=== PATIENT | male | born 1940 | race Caucasian/White ===

== ENCOUNTER → 2017-06-08 | Outpatient (CLI) | payer MEDICARE, OTHER ==
[~2017-06-08] MED LIST: ASCO10004 PO; ASPI-496 PO; CALC625T68 PO; CYAN50008 PO; MULT-224 PO; OMEP-110 PO; ROSU20TA PO
[2017-06-08 10:14] LABS: HEMATOCRIT 45.5 % (39.2-51.8); HEMOGLOBIN 15.3 g/dL (13.7-18.0); WHITE BLOOD COUNT 5.4 x10^3/uL (3.4-10)
[2017-06-08 10:26] LABS: ASPARTATE AMINO TRANSFERASE 19 U/L (15-37); BLOOD UREA NITROGEN 12 mg/dL (7-18)
[2017-06-08 10:47] LABS: HIV 1&2 ANTIBODY SCREEN Nonreactive (Nonreactive); HIV-1 p24 ANTIGEN Nonreactive (Nonreactive)
== END | disposition home or self-care (01) ==
LOC: STAR 08:50
PROVIDERS: ATTEND Orthopaedic Surgery Orthopaedic Surgery of the Spine
DX: Z01.811 Encounter for preprocedural respiratory examination (principal); M48.56XA Collapsed vertebra, not elsewhere classified, lumbar region, initial encounter for fracture; M47.894 Other spondylosis, thoracic region; R00.1 Bradycardia, unspecified
CPT/HCPCS: 36415; 71020; 80053; 80074; 81003; 85025; 85610; 85651; 85730; 86703; 87899; 93005; G0435

== ENCOUNTER 2017-06-16 13:20 | Day surgery (SDC) | payer MEDICARE, OTHER ==
[~2017-06-16] VITALS: Ht 188 cm; Wt 81.0 kg
[2017-06-16] MEDS ORDERED: LACTATED RINGERS 1,000 ML IV SCH (13:40)
[2017-06-16] MEDS ORDERED: BUPIVACAINE/PF 0.5% ONE (15:54)
[2017-06-16] MEDS ORDERED: EPINEPHRINE 1 MG/ML, 1ML ONE (15:54)
[2017-06-16] MEDS ORDERED: LIDOCAINE/PF 1%, 30ML ONE (15:54)
[2017-06-16] MEDS ORDERED: ROCURONIUM 10 MG/ML ONE (16:13)
[2017-06-16] MEDS ORDERED: FENTANYL PF 100 MCG/2ML ONE (16:13)
[2017-06-16] MEDS ORDERED: LIDOCAINE 2%, 10ML ONE (16:13)
[2017-06-16] MEDS ORDERED: NEOSTIGMINE 1 MG/ML, 10ML ONE (16:13)
[2017-06-16] MEDS ORDERED: ONDANSETRON 2MG/ML, 2ML ONE (16:13)
[2017-06-16] MEDS ORDERED: CEFAZOLIN 1,000 MG ONE (16:13)
[2017-06-16] MEDS ORDERED: SUCCINYLCHOLINE 20 MG/ML, 10ML ONE (16:13)
[2017-06-16] MEDS ORDERED: PROPOFOL 10 MG/ML, 20ML ONE (16:13)
[2017-06-16] MEDS ORDERED: OMNIPAQUE 180 MG/ML, 20ML VIAL IT ONE (16:45)
[2017-06-16] MEDS ORDERED: LABETALOL 5MG/ML, 20ML IV PRN (17:00)
[2017-06-16] MEDS ORDERED: PROMETHAZINE 25 MG/ML, 1ML IV PRN (17:00)
[2017-06-16] MEDS ORDERED: FENTANYL PF 100 MCG/2ML IV PRN (17:00)
[2017-06-16] MEDS ORDERED: ACETAMINOPHEN 325 MG TABLET PO PRN (17:00)
[2017-06-16] MEDS ORDERED: hydrALAzine 20 MG/ML, 1ML IV PRN (17:00)
[2017-06-16] MEDS ORDERED: MIDAZOLAM 1 MG/ML, 2ML IV PRN (17:00)
[2017-06-16] MEDS ORDERED: HYDROmorphone 1 MG/ML, 1ML IV PRN (17:00)
[2017-06-16] MEDS ORDERED: OXYcodone 5 MG/5 ML ORAL.SOL UDC PO PRN (17:00)
[2017-06-16] MEDS ORDERED: ONDANSETRON 2MG/ML, 2ML IVPush PRN (17:00)
[2017-06-16] MEDS ORDERED: OMNIPAQUE 180 MG/ML, 20ML VIAL ONE (18:21)
[2017-06-16 19:10] VITALS: BP 152/98
== END 2017-06-16 20:00 | disposition home or self-care (01) ==
LOC: OUT 13:20 → 4NOR 18:30 → OUT 20:00
PROVIDERS: ATTEND Orthopaedic Surgery Orthopaedic Surgery of the Spine
DX: M80.88XA Other osteoporosis with current pathological fracture, vertebra(e), initial encounter for fracture (principal); I25.10 Atherosclerotic heart disease of native coronary artery without angina pectoris; K21.9 Gastro-esophageal reflux disease without esophagitis; I25.2 Old myocardial infarction; Z96.652 Presence of left artificial knee joint; Z96.642 Presence of left artificial hip joint; Z79.82 Long term (current) use of aspirin; Z72.89 Other problems related to lifestyle
CPT/HCPCS: 22514; 72100; 88307; 88311; C1713; J0171; J0330; J0690; J2405; J2704; J2710; J3010; J3490; J7120; Q9965; 88342; G0461

== ENCOUNTER 2019-09-12 10:43 | Inpatient (IN) | payer MEDICARE, OTHER ==
[~2019-09-12] VITALS: Ht 188 cm; Wt 87.6 kg
[~2019-09-12 10:43] MED LIST changes: -MULT-224 PO; +MULT-642 PO; -ROSU20TA PO; +ROSU20TA2 PO
--- NOTE | 2019-09-12 10:52 | NUR ---
PT GÓMEZ, REPORT RECEIVED FROM EMS. PT C/O RIGHT HIP PAIN FOLLOWING FALL OFF OF STEP STOOL THIS AM; OBVIOUS DEFORMITY, EXTERNAL ROTATION AND SHORTENING NOTED TO RT HIP. PT DENIES SYNCOPE, DENIES HEAD INJURY, DENIES NECK PAIN. 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 AT BEDSIDE. CALL LIGHT IN REACH. PT A&O, RESPS EVEN AND UNLABORED. AWAITING MD AND ORDERS AT THIS TIME.
[2019-09-12] MEDS ORDERED: SODIUM CHLORIDE 0.9% 1,000 ML IV ONE (11:03)
--- NOTE | 2019-09-12 11:15 | NUR ---
PT CHANGED INTO GOWN, ALL MONITORS IN PLACE, EMS BACKBOARD REMOVED. PT TOLERATED WELL. PT DECLINES PAIN MEDICATION AT THIS TIME.
--- NOTE | 2019-09-12 11:19 | NUR ---
RADIOLOGY PAGED TO COLLECT PT. EKG HEART BY EDT.
[2019-09-12] MEDS ORDERED: SODIUM CHLORIDE FLUSH 10ML SYR IVF ONE (11:30)
--- NOTE | 2019-09-12 11:32 | NUR ---
THIS RN UNABLE TO PALPATE DORSALIS PEDIS PULSE TO RIGHT FOOT, PT STATES HE HAS SENSATION IN TOES, CAP REFILL <3 SEC. FOOT IS PINK, COOL, DRY. THIS RN ABLE TO LOCATE RT DORSALIS PULSE WITH DOPPLER. KLAUDIA MANZO NOTIFIED. PT DECLINES PAIN MEDICATION AT THIS TIME. PT TO XRAY WITH TECH.
[2019-09-12 11:33] LABS: BASOPHILS # (AUTO) 0.04 x10^3/uL (0-0.1); BASOPHILS % (AUTO) 1 % (0-1); EOSINOPHILS # (AUTO) 0.14 x10^3/uL (0-0.4); EOSINOPHILS % (AUTO) 2 % (1-7); LYMPHOCYTES # (AUTO) 2.04 x10^3/uL (1-3.4); LYMPHOCYTES % (AUTO) 29 % (22-44); MD NO; MEAN CORPUSCULAR HEMOGLOBIN 32.5 pg (27.5-34.5); MEAN CORPUSCULAR HGB CONC 33.6 g/dL (33.2-36.2); MEAN CORPUSCULAR VOLUME 96.8 fL (81-97); MEAN PLATELET VOLUME 8.2 fL (7.4-10.4); MONOCYTES # (AUTO) 0.66 x10^3/uL (0.2-0.8); MONOCYTES % (AUTO) 9 % (2-9); NEUTROPHILS # (AUTO) 4.19 x10^3/uL (1.8-6.8); NEUTROPHILS % (AUTO) 59 % (42-75); PLATELET COUNT 216 x10^3/uL (130-400); RED BLOOD COUNT 4.21 x10^6/uL (4.38-5.82); RED CELL DISTRIBUTION WIDTH 12.9 % (9.4-14.8)
[2019-09-12 11:43] LABS: INTERNATIONAL NORMALIZED RATIO 0.97 (0.93-1.1); PROTHROMBIN TIME 10.2 Seconds (9.6-11.5)
[2019-09-12 11:45] LABS: ALBUMIN 3.7 g/dL (3.4-5.0); ANION GAP 11 mmol/L (5-15); CALCIUM 8.7 mg/dL (8.5-10.1); CHLORIDE 109 mmol/L (98-107); CREATININE 1.08 mg/dL (0.7-1.3)
--- NOTE | 2019-09-12 12:12 | NUR ---
Admitting MD at
[2019-09-12] MEDS ORDERED: hydrALAzine 20 MG/ML, 1ML IVPush PRN (12:30)
[2019-09-12] MEDS ORDERED: morphine SULFATE 10 MG/ML, 1ML IVPush PRN (12:30)
[2019-09-12] MEDS ORDERED: ONDANSETRON ODT 4 MG PO PRN (12:30)
[2019-09-12] MEDS ORDERED: ONDANSETRON 2MG/ML, 2ML IVPush PRN (12:30)
[2019-09-12] MEDS ORDERED: LIDODERM 5% PATCH TD PRN (12:30)
--- NOTE | 2019-09-12 12:34 | NUR ---
PT A&O, RESPS EVEN AND UNLABORED. 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 PT DECLINES PAIN MEDICATION AT THIS TIME. PT AND UPDATED WITH POC. PT MOVED TO ROOM 16, REPORT GIVEN TO SHELLEY ARGUETA.
--- NOTE | 2019-09-12 12:36 | NUR ---
ENRIQUEAR RPT FROM SHELLEY YEE. ASSUMED PT CARE, PT MOVED TO ROOM 16, VSS. US TECH AT BEDSIDE. PT RATES PAIN 2/10 PAIN MED OFFERED AND REFUSED. CALL LIGHT W/I REACH
--- NOTE | 2019-09-12 12:57 | NUR ---
DR ESCALERA OFFICE CALLED @ 1216 AND @ [id number]
[2019-09-12] MEDS ORDERED: ONDANSETRON 2MG/ML, 2ML ONE ×2 (13:11→21:53)
[2019-09-12] MEDS ORDERED: MORPHINE SULFATE 4 MG/ML, 1ML ONE (13:11)
[2019-09-12] MEDS: MORPHINE SULFATE 4 MG/ML, 1ML IVPush PRN ×2 (13:14→15:59)
[2019-09-12 14:00] VITALS: BP 156/91
[2019-09-12] MEDS: PANTOPROZOLE 40MG TABLET PO SCH (14:24)
[2019-09-12] MEDS: D5%-0.45NACL+KCL 20MEQ 1,000 ML IV SCH (16:01)
[2019-09-12] MEDS ORDERED: HYDROmorphone 2 MG/ML, 1ML IVPush PRN ×3 (17:00→22:00)
[2019-09-12] MEDS ORDERED: HYDROmorphone 1 MG/ML, 1ML INJ IV ONE (17:00)
[2019-09-12] MEDS ORDERED: OMNIPAQUE 350 MG/ML, 100ML BOTTLE ONE (17:33)
[2019-09-12] MEDS ORDERED: FENTANYL PF 250 MCG/5ML ONE (18:55)
[2019-09-12] MEDS: ATORVASTATIN 40 MG TABLET PO SCH (21:00)
[2019-09-12] MEDS ORDERED: TEMPLATE NON-FORMULARY MED. (Rosuvastatin Calcium** (Crestor**) 20 MG) PO SCH (21:00)
[2019-09-12] MEDS ORDERED: CEFAZOLIN 1,000 MG ONE ×2 (21:12)
[2019-09-12] MEDS ORDERED: EPHEDRINE 50 MG/ML, 1ML ONE (21:13)
[2019-09-12] MEDS ORDERED: DEXAMETHASONE 4 MG/ML, 1ML ONE (21:14)
[2019-09-12] MEDS ORDERED: PROPOFOL 10 MG/ML, 20ML ONE (21:14)
[2019-09-12] MEDS ORDERED: ROCURONIUM 10MG/ML,5ML ONE (21:52)
[2019-09-12] MEDS ORDERED: OXYcodone 5 MG/5 ML ORAL.SOL UDC PO PRN (22:00)
[2019-09-12] MEDS ORDERED: PROMETHAZINE 25 MG/ML, 1ML IV PRN (22:00)
[2019-09-12] MEDS ORDERED: LABETALOL 5MG/ML, 20ML IV PRN (22:00)
[2019-09-12] MEDS ORDERED: hydrALAzine 20 MG/ML, 1ML IV PRN (22:00)
[2019-09-12] MEDS ORDERED: ACETAMINOPHEN 325 MG TABLET PO PRN (22:00)
[2019-09-12] MEDS ORDERED: ONDANSETRON 2MG/ML, 2ML IV PRN (22:00)
[2019-09-12] MEDS ORDERED: FENTANYL PF 100 MCG/2ML IV PRN (22:00)
[2019-09-12] MEDS ORDERED: OXYcodone 5 MG/5 ML ORAL.SOL UDC ONE (22:26)
[2019-09-13] MEDS: OXYcodone IR 5MG TABLET PO PRN ×4 (01:52→19:16)
[2019-09-13] MEDS: BACLOFEN 10 MG TABLET PO PRN ×2 (01:52→20:09)
[2019-09-13] MEDS: PANTOPROZOLE 40MG TABLET PO SCH ×2 (05:23→18:02)
[2019-09-13] MEDS: CEFAZOLIN PMX 1GM/50ML 50 ML IV SCH ×2 (05:23→14:15)
[2019-09-13] MEDS: KETOROLAC 30 MG/1 ML IV PRN (05:24)
[2019-09-13 06:43] VITALS: BP 93/60
[2019-09-13] MEDS: SENNA/DOCUSATE TABLET PO SCH (08:59)
[2019-09-13] MEDS: D5%-0.45NACL+KCL 20MEQ 1,000 ML IV SCH ×2 (08:59→21:53)
[2019-09-13] MEDS: ENOXAPARIN 40 MG/0.4 ML SQ SCH (12:16)
[2019-09-13 12:25] VITALS: BP 92/55
[2019-09-13 12:30] VITALS: BP 110/70
[2019-09-13 12:35] VITALS: BP 74/55
[2019-09-13 18:24] VITALS: BP 107/62
[2019-09-13] MEDS: ATORVASTATIN 40 MG TABLET PO SCH (20:09)
[2019-09-14 01:10] VITALS: BP 104/66
[2019-09-14] MEDS: BACLOFEN 10 MG TABLET PO PRN (03:44)
[2019-09-14] MEDS: OXYcodone IR 5MG TABLET PO PRN ×3 (03:56→15:00)
[2019-09-14] MEDS: PANTOPROZOLE 40MG TABLET PO SCH (06:16)
[2019-09-14 07:04] VITALS: BP 114/71
[2019-09-14] MEDS: ASPIRIN 81 MG TABLET EC PO SCH (08:19)
[2019-09-14] MEDS: SENNA/DOCUSATE TABLET PO SCH (08:19)
[2019-09-14] MEDS: D5%-0.45NACL+KCL 20MEQ 1,000 ML IV SCH (10:28)
[2019-09-14] MEDS: ENOXAPARIN 40 MG/0.4 ML SQ SCH (11:23)
[2019-09-14] MEDS: DOCUSATE 100 MG CAPSULE PO SCH ×2 (11:23→19:45)
[2019-09-14] MEDS: KETOROLAC 30 MG/1 ML IV PRN (11:45)
[2019-09-14 14:15] VITALS: BP 91/54
[2019-09-14 18:29] VITALS: BP 115/62
[2019-09-14] MEDS: ATORVASTATIN 40 MG TABLET PO SCH (19:45)
[2019-09-14] MEDS: MAGNESIUM HYDROXIDE 8%, 30ML UDC PO SCH ×2 (19:45→19:49)
[2019-09-15 01:12] VITALS: BP 95/62
[2019-09-15] MEDS: OXYcodone IR 5MG TABLET PO PRN ×3 (01:41→22:15)
[2019-09-15] MEDS: KETOROLAC 30 MG/1 ML IV PRN ×3 (01:48→22:14)
[2019-09-15 05:36] LABS: BASOPHILS # (AUTO) 0.02 x10^3/uL (0-0.1); BASOPHILS % (AUTO) 0 % (0-1); EOSINOPHILS # (AUTO) 0.07 x10^3/uL (0-0.4); EOSINOPHILS % (AUTO) 1 % (1-7); LYMPHOCYTES # (AUTO) 0.98 x10^3/uL (1-3.4); LYMPHOCYTES % (AUTO) 14 % (22-44); MD NO; MEAN CORPUSCULAR HEMOGLOBIN 32.6 pg (27.5-34.5); MEAN CORPUSCULAR VOLUME 98.8 fL (81-97); MEAN PLATELET VOLUME 8.6 fL (7.4-10.4); MONOCYTES # (AUTO) 0.85 x10^3/uL (0.2-0.8); MONOCYTES % (AUTO) 12 % (2-9); NEUTROPHILS # (AUTO) 5.26 x10^3/uL (1.8-6.8); NEUTROPHILS % (AUTO) 73 % (42-75); PLATELET COUNT 152 x10^3/uL (130-400); RED BLOOD COUNT 2.34 x10^6/uL (4.38-5.82)
[2019-09-15 05:51] LABS: ALANINE AMINOTRANSFERASE 32 U/L (12-78); ALBUMIN 2.6 g/dL (3.4-5.0); ANION GAP 8 mmol/L (5-15); CALCIUM 7.6 mg/dL (8.5-10.1); CHLORIDE 105 mmol/L (98-107); CREATININE 0.96 mg/dL (0.7-1.3)
[2019-09-15 05:53] LABS: ALKALINE PHOSPHATASE 44 U/L (45-117); BILIRUBIN,TOTAL 1.6 mg/dL (0.2-1.0); TOTAL PROTEIN 5.5 g/dL (6.4-8.2)
[2019-09-15 06:59] VITALS: BP 101/65
[2019-09-15] MEDS: SENNA/DOCUSATE TABLET PO SCH (09:00)
[2019-09-15] MEDS: ENOXAPARIN 40 MG/0.4 ML SQ SCH (12:15)
[2019-09-15 13:20] VITALS: BP 98/56
[2019-09-15 19:25] VITALS: BP 108/70
[2019-09-15] MEDS: MAGNESIUM HYDROXIDE 8%, 30ML UDC PO SCH (22:14)
[2019-09-15] MEDS: ACETAMINOPHEN 325 MG TABLET PO PRN (22:15)
[2019-09-15] MEDS: ATORVASTATIN 40 MG TABLET PO SCH (22:15)
[2019-09-16] VITALS (15 sets, daily range): BP systolic 82–99; BP diastolic 49–74
[2019-09-16] MEDS: OXYcodone IR 5MG TABLET PO PRN ×2 (05:58→15:22)
[2019-09-16] MEDS: ACETAMINOPHEN 325 MG TABLET PO PRN ×2 (05:58→15:22)
[2019-09-16] MEDS: KETOROLAC 30 MG/1 ML IV PRN (05:59)
[2019-09-16] MEDS: ASPIRIN 81 MG TABLET EC PO SCH (08:15)
[2019-09-16] MEDS: SENNA/DOCUSATE TABLET PO SCH (08:16)
[2019-09-16 08:26] LABS: ANION GAP 6 mmol/L (5-15); CALCIUM 7.9 mg/dL (8.5-10.1); CHLORIDE 105 mmol/L (98-107); CREATININE 0.98 mg/dL (0.7-1.3)
[2019-09-16 08:55] LABS: MEAN CORPUSCULAR HEMOGLOBIN 33.1 pg (27.5-34.5); MEAN CORPUSCULAR HGB CONC 33.3 g/dL (33.2-36.2); MEAN CORPUSCULAR VOLUME 99.3 fL (81-97); MEAN PLATELET VOLUME 8.4 fL (7.4-10.4); PLATELET COUNT 193 x10^3/uL (130-400); RED BLOOD COUNT 2.25 x10^6/uL (4.38-5.82); RED CELL DISTRIBUTION WIDTH 12.8 % (9.4-14.8)
[2019-09-16 08:58] LABS: BASOPHILS # (AUTO) 0.01 x10^3/uL (0-0.1); BASOPHILS % (AUTO) 0 % (0-1); EOSINOPHILS # (AUTO) 0.12 x10^3/uL (0-0.4); EOSINOPHILS % (AUTO) 2 % (1-7); LYMPHOCYTES # (AUTO) 0.89 x10^3/uL (1-3.4); LYMPHOCYTES % (AUTO) 13 % (22-44); MD SCAN; MONOCYTES # (AUTO) 0.54 x10^3/uL (0.2-0.8); MONOCYTES % (AUTO) 8 % (2-9); NEUTROPHILS # (AUTO) 5.39 x10^3/uL (1.8-6.8); NEUTROPHILS % (AUTO) 78 % (42-75)
[2019-09-16] MEDS ORDERED: ACETAMINOPHEN 325 MG TABLET PO ONE (09:30)
[2019-09-16] MEDS: MAGNESIUM HYDROXIDE 8%, 30ML UDC PO SCH (21:31)
[2019-09-16] MEDS: ATORVASTATIN 40 MG TABLET PO SCH (21:31)
[2019-09-17 01:53] VITALS: BP 111/70
[2019-09-17 05:43] LABS: BASOPHILS # (AUTO) 0.02 x10^3/uL (0-0.1); BASOPHILS % (AUTO) 0 % (0-1); EOSINOPHILS # (AUTO) 0.18 x10^3/uL (0-0.4); EOSINOPHILS % (AUTO) 3 % (1-7); LYMPHOCYTES # (AUTO) 1.11 x10^3/uL (1-3.4); LYMPHOCYTES % (AUTO) 19 % (22-44); MD NO; MEAN CORPUSCULAR HEMOGLOBIN 32.8 pg (27.5-34.5); MEAN CORPUSCULAR VOLUME 96.3 fL (81-97); MEAN PLATELET VOLUME 8.3 fL (7.4-10.4); MONOCYTES # (AUTO) 0.53 x10^3/uL (0.2-0.8); MONOCYTES % (AUTO) 9 % (2-9); NEUTROPHILS # (AUTO) 4.08 x10^3/uL (1.8-6.8); NEUTROPHILS % (AUTO) 69 % (42-75); PLATELET COUNT 192 x10^3/uL (130-400); RED BLOOD COUNT 2.47 x10^6/uL (4.38-5.82); RED CELL DISTRIBUTION WIDTH 13.9 % (9.4-14.8)
[2019-09-17 06:33] VITALS: BP 105/68
[2019-09-17] MEDS: SENNA/DOCUSATE TABLET PO SCH (08:48)
[2019-09-17] MEDS: ACETAMINOPHEN 325 MG TABLET PO PRN ×2 (11:47→15:28)
[2019-09-17] MEDS: OXYcodone IR 5MG TABLET PO PRN ×2 (11:47→15:29)
[2019-09-17 14:00] VITALS: BP 95/62
[2019-09-17] MEDS ORDERED: OXYC5TAB3 PO (15:21)
[2019-09-17] MEDS ORDERED: ASPI-650 PO (15:21)
[2019-09-17] MEDS ORDERED: OXYcodone 5 MG/5 ML ORAL.SOL UDC ONE (15:27)
[2019-09-17 16:03] VITALS: BP 99/64
== END 2019-09-17 16:07 | DRG 481 ==
LOC: ED 13:12 → EDIP 13:23 → 4NW 13:50 → 4NE 22:22
PROVIDERS: ADMIT Hospitalist; ATTEND Hospitalist
PROC: 0QS606Z Reposition Right Upper Femur with Intramedullary Internal Fixation Device, Open Approach (ICD-10-PCS; principal; 2019-09-12 19:45)
PROC: 30233N1 Transfusion of Nonautologous Red Blood Cells into Peripheral Vein, Percutaneous Approach (ICD-10-PCS; 2019-09-16)
DX: S72.141A Displaced intertrochanteric fracture of right femur, initial encounter for closed fracture (principal); E87.2 Acidosis; D62 Acute posthemorrhagic anemia; W01.0XXA Fall on same level from slipping, tripping and stumbling without subsequent striking against object, initial encounter; Y93.89 Activity, other specified; Y92.89 Other specified places as the place of occurrence of the external cause; Y99.8 Other external cause status; E78.00 Pure hypercholesterolemia, unspecified; E78.5 Hyperlipidemia, unspecified; K21.9 Gastro-esophageal reflux disease without esophagitis; I25.10 Atherosclerotic heart disease of native coronary artery without angina pectoris; I25.2 Old myocardial infarction; K59.00 Constipation, unspecified; Z96.652 Presence of left artificial knee joint; Z96.642 Presence of left artificial hip joint; Z95.5 Presence of coronary angioplasty implant and graft; Z87.891 Personal history of nicotine dependence; Z86.74 Personal history of sudden cardiac arrest; Z82.49 Family history of ischemic heart disease and other diseases of the circulatory system
CPT/HCPCS: 36415; 71045; 71275; 76000; 80048; 80053; 82040; 82306; 83036; 85014; 85018; 85025; 85610; 86850; 86900; 86923; 93005; 93306; 96361; 96374; C1713; G0378; J0690; J1100; J1650; J1885; J2405; J2704; J3010; Q9967; J2270; J3480; J7030; P9016